=== PATIENT | female | born 1975 | race Two or more races ===

== ENCOUNTER 2019-05-10 09:00 | Emergency (ER) | payer BC, MEDICAID ==
[~2019-05-10] VITALS: Ht 165.1 cm; Wt 68.0 kg
--- NOTE | 2019-05-10 09:19 | PHYS DOC ---
Past History Past Medical History: No Pertinent History Past Surgical History: Tubal ligation Additional Past Surgical Histo: Hernia Smoking: Non-smoker Alcohol Use: None Drug Use: None Adult General Chief Complaint Chief Complaint: LOWER EXT PAIN HPI HPI 44-year-old female presents with report of left knee contusion which occurred last night. Patient reports she was washing her dog and bathtub and slipped on the water striking her left knee on the side of the tub. Patient reports she took some [id number] Aleve last night and went to bed. Upon waking this morning patient reports considerable pain with straightening it. Patient does report history of prior injury to that same knee. Patient reports concern for possible "meniscal injury ". Patient denies other trauma or injury. Denies - reports prior tubal ligation. Review of Systems Review of Systems Constitutional: Denies fever or chills Eyes: Denies redness or eye pain HENT: Denies nasal congestion or sore throat Respiratory: Denies cough or shortness of breath Cardiovascular: Denies chest pain or palpitations GI: Denies abdominal pain, nausea, or vomiting : Denies dysuria or hematuria Musculoskeletal: Denies back pain; reports left knee pain Integument: Denies rash or skin lesions Neurologic: Denies headache, focal weakness or sensory changes Complete systems were reviewed and found to be within normal limits, except as documented in this note. Physical Exam Physical Exam Constitutional: Well developed, well nourished, no acute distress, non-toxic appearance HENT: Normocephalic, atraumatic, oropharynx moist Eyes: Conjunctiva normal, no discharge Neck: Normal range of motion, supple Cardiovascular: Left PT +2 Lungs & Thorax: No respiratory distress, equal chest rise and fall Skin: Warm, dry, no erythema, no ecchymosis, no laceration Extremities: Left knee: proximal tibial plateau tenderness, no patellar tenderness, joint stable, anterior drawer negative Neurologic: Alert and oriented X 3, no focal deficits noted Psychologic: Affect normal, judgment normal EKG EKG [] Radiology/Procedures Radiology/Procedures PROCEDURE: KNEE LEFT 3V Examination: KNEE LEFT 3V History: Pain, fall Comparison/Correlation: None Findings: 05/09/2022 view left knee was performed. Spaces are normal. No definite or significant knee joint effusion. Mild remodeling of the lateral aspect of the lateral compartment is present with spurring. Mild subchondral sclerosis and spurring of the patella is noted inferiorly. Subtle valgus deformity of the knee is evident. No displaced fracture or bone destruction. Soft tissues are unremarkable. Impression: No acute process. Early degenerative changes. Electronically signed by: Edgar Cho MD (05/10/2019 9:51 AM) [id number] Course & Med Decision Making Course & Med Decision Making Pertinent Imaging studies reviewed. (See chart for details) Patient presents with report of slip and fall striking left knee on bathtub last night. Patient reports unable to straighten leg this morning. No significant deformity appreciated. Some proximal tibial discomfort noted. Joint appears stable. Ice applied. X-ray without acute fracture or dislocation. Patient educated on RICE and provided LORENE bandage and crutches. Patient stable for discharge with outpatient follow-up with PCP/orthopedics. Orthopedic referral provided. Discussed findings and plan with patient, who acknowledges understanding and agreement. Dragon Disclaimer Dragon Disclaimer This electronic medical record was generated, in whole or in part, using a voice recognition dictation system. Splinting Splinting : Location: Left knee Pre-Made Type: LORENE bandage Pre-Proc Neuro Vasc Exam: normal Post-Proc Neuro Vasc Exam: normal, unchanged from pre-exam Departure Departure: Impression: Primary Impression: Contusion of knee, left Disposition: 01 HOME, SELF-CARE Condition: STABLE Referrals: MARK ZELAYA MD (PCP) LUCILLE RIDDLE MD Patient Instructions: Crutch Use, [id number], Knee Sprain, [id number], Knee Wraps (Elastic Bandage) and RICE Additional Instructions: USE over the counter Tylenol and Ibuprofen/Naproxen for pain or discomfort. ICE area 20 min on then leave off for next 20 min. Problem Qualifiers Primary Impression: Contusion of knee, left Encounter type: initial encounter Qualified Codes: S80.02XA - Contusion of left knee, initial encounter BRENNEN BRIGGS DO May 10, 2019 09:19
[2019-05-10 09:22] VITALS: BP 111/72
--- NOTE | 2019-05-10 09:54 | RAD ---
Examination: KNEE LEFT 3V History: Pain, fall Comparison/Correlation: None Findings: 05/09/2022 view left knee was performed. Spaces are normal. No definite or significant knee joint effusion. Mild remodeling of the lateral aspect of the lateral compartment is present with spurring. Mild subchondral sclerosis and spurring of the patella is noted inferiorly. Subtle valgus deformity of the knee is evident. No displaced fracture or bone destruction. Soft tissues are unremarkable. Impression: No acute process. Early degenerative changes. Electronically signed by: Edgar Cho MD (05/10/2019 9:51 AM) [id number]
== END 2019-05-10 09:54 | disposition home or self-care (01) ==
LOC: ER 09:00
DX: S80.02XA Contusion of left knee, initial encounter (principal); W18.49XA Other slipping, tripping and stumbling without falling, initial encounter; Y93.89 Activity, other specified; Y92.89 Other specified places as the place of occurrence of the external cause; Y99.8 Other external cause status
CPT/HCPCS: 73562; 99283